=== PATIENT | female | born 1965 | race African-American/Black ===

== ENCOUNTER 2018-04-18 11:01 | Inpatient (IN) | payer OTHER ==
[2018-04-18 11:25] VITALS: BMI 25.2
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
[2018-04-18] MEDS ORDERED: MENTHOL/PHENOL 1 EACH UD MM PRN (11:58)
[2018-04-18] MEDS ORDERED: LOPERAMIDE HCL 2 MG CAPSULE PO PRN (11:58)
[2018-04-18] MEDS ORDERED: chlordiazePOXIDE HCL 25 MG CAPSULE PO PRN (11:58)
[2018-04-18] MEDS ORDERED: P-EPHED 60MG/TRIPROLIDI 2.5MG TABLET PO PRN (11:58)
[2018-04-18] MEDS ORDERED: MAG HYDROX/AL HYDROX/SIMETH 30 ML UNIT-DOSE CUP PO PRN (11:58)
[2018-04-18] MEDS ORDERED: MAGNESIUM CITRATE 300 ML BOTTLE PO PRN (11:58)
[2018-04-18] MEDS ORDERED: IBUPROFEN 400 MG TABLET (FP) PO PRN (11:58)
[2018-04-18] MEDS ORDERED: ACETAMINOPHEN 325 MG TABLET (FP) PO PRN (11:58)
[2018-04-18] MEDS ORDERED: MAGNESIUM HYDROX 2400MG/30ML ORAL SUSPENSION 30 ML CUP PO PRN (11:58)
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
[2018-04-18] MEDS: chlordiazePOXIDE HCL 25 MG CAPSULE PO SCH ×2 (17:16→22:38)
[2018-04-18] MEDS ORDERED: THIAMINE HCL 100 MG TABLET (FP) PO SCH (22:00)
[2018-04-18] MEDS ORDERED: MELATONIN 5 MG TABLETS PO PRN (22:00)
[2018-04-19] MEDS: guaiFENesin/D-METHORPHAN HB 10 ML UNIT-DOSE CUPS PO PRN ×2 (02:14→10:40)
[2018-04-19] MEDS: chlordiazePOXIDE HCL 25 MG CAPSULE PO SCH ×2 (05:32→10:41)
[2018-04-19] MEDS ORDERED: LEVOTHYROXINE NA 100 MCG TABLET (FP) PO SCH (07:00)
[2018-04-19] MEDS ORDERED: PRENATAL VITAMINS W/ FOLIC ACID TABLET (FP) PO SCH (10:00)
[2018-04-19 10:09] LABS: URINE APPEARANCE CLEAR; URINE BILIRUBIN NEGATIVE (<2.0 mg/dL); URINE COLOR YELLOW; URINE GLUCOSE (UA) NEGATIVE (NEGATIVE); URINE KETONE NEGATIVE (NEGATIVE); URINE LEUK ESTERASE TRACE (NEGATIVE); URINE NITRITE NEGATIVE (NEGATIVE); URINE PROTEIN NEGATIVE (NEGATIVE); URINE UROBILINOGEN NEGATIVE mg/dL (0.2-1.0)
[2018-04-19 10:19] LABS: EPI CELLS RARE /HPF (FEW); URINE MUCUS RARE
[2018-04-19 10:28] LABS: HEMATOCRIT 39.8 % (32.4-45.2); HEMOGLOBIN 13.8 GM/dL (10.7-15.3); MCH 33.8 pg (25.7-33.7); MCHC 34.6 g/dl (32.0-36.0); MEAN CELL VOLUME 97.6 fl (80-96); MEAN PLT VOLUME 8.4 fl (7.5-11.1); PLATELET COUNT 396 K/MM3 (134-434); RBC 4.07 M/mm3 (3.60-5.2); RDW 13.2 % (11.6-15.6); WHITE BLOOD COUNT 5.4 K/mm3 (4.0-10.0)
[2018-04-19 10:33] LABS: ALBUMIN 3.3 g/dl (3.4-5.0); ALK PHOS 120 U/L (45-117); ANION GAP 12 MMOL/L (8-16); BILIRUBIN,TOTAL 0.3 mg/dL (0.2-1); BLOOD UREA NITROGEN 11 mg/dL (7-18); CALCIUM 8.4 mg/dL (8.5-10.1); CHLORIDE 108 mmol/L (98-107); CO2 25 mmol/L (21-32); GLUCOSE,RANDOM 118 mg/dL (74-106); POTASSIUM 4.4 mmol/L (3.5-5.1); SGOT/AST 16 U/L (15-37); SGPT/ALT 21 U/L (13-61); SODIUM 144 mmol/L (136-145); TOT PROT 7.1 g/dl (6.4-8.2)
--- NOTE | 2018-04-19 12:26 | EKG ---
Test Reason : Blood Pressure : / mmHG Vent. Rate : 059 BPM Atrial Rate : 059 BPM P-R Int : 132 ms QRS Dur : 082 ms QT Int : 448 ms P-R-T Axes : 064 064 058 degrees QTc Int : 443 ms SINUS BRADYCARDIA WITH MARKED SINUS ARRHYTHMIA NO PREVIOUS ECGS AVAILABLE Confirmed by CLARENCE CHAVEZ MD ([id number]) on 04/19/2018 12:26:27 PM Referred By: Confirmed By:CLARENCE CHAVEZ MD
--- NOTE | 2018-04-19 13:17 | PN ---
S CIWA - CIWA Score Nausea/Vomitin-No Nausea/No Vomiting Muscle Tremors: None Anxiety: 3 Agitation: 3 Paroxysmal Sweats: 2 Orientation: 0-Oriented Tacttile Disturbances: 0-None Auditory Disturbances: 0-None Visual Disturbances: 0-None Headache: 0-None Present CIWA-Ar Total Score: 8 BHS Progress Note (SOAP) Subjective: PATIENT C/O ANXIETY, IRRITABILITY AND SWEATING. Objective: 04/19/18 13:13 Vital Signs Temperature 98.1 F 04/19/18 09:45 Pulse Rate 81 04/19/18 09:45 Respiratory Rate 18 04/19/18 09:45 Blood Pressure 117/74 04/19/18 09:45 O2 Sat by Pulse Oximetry (%) Vital Signs Temperature 98.1 F 04/19/18 09:45 Pulse Rate 81 04/19/18 09:45 Respiratory Rate 18 04/19/18 09:45 Blood Pressure 117/74 04/19/18 09:45 O2 Sat by Pulse Oximetry (%) Laboratory Tests 04/19/18 04/19/18 04/19/18 06:00 06:00 06:00 WBC 5.4 RBC 4.07 Hgb 13.8 Hct 39.8 MCV 97.6 H MCH 33.8 H MCHC 34.6 RDW 13.2 Plt Count 396 MPV 8.4 Sodium 144 Potassium 4.4 Chloride 108 H Carbon Dioxide 25 Anion Gap 12 BUN 11 Creatinine 1.0 Creat Clearance w eGFR 58.00 Random Glucose 118 H Calcium 8.4 L Total Bilirubin 0.3 AST 16 ALT 21 Alkaline Phosphatase 120 H Total Protein 7.1 Albumin 3.3 L Urine Color Urine Appearance Urine pH Ur Specific Harrison Urine Protein Urine Glucose (UA) Urine Ketones Urine Blood Urine Nitrite Urine Bilirubin Urine Urobilinogen Ur Leukocyte Esterase Urine WBC (Auto) Urine RBC (Auto) Ur Epithelial Cells Urine Mucus RPR Titer Nonreactive 04/19/18 08:20 WBC RBC Hgb Hct MCV MCH MCHC RDW Plt Count MPV Sodium Potassium Chloride Carbon Dioxide Anion Gap BUN Creatinine Creat Clearance w eGFR Random Glucose Calcium Total Bilirubin AST ALT Alkaline Phosphatase Total Protein Albumin Urine Color Yellow Urine Appearance Clear Urine pH 6.0 Ur Specific Harrison 1.025 Urine Protein Negative Urine Glucose (UA) Negative Urine Ketones Negative Urine Blood Negative Urine Nitrite Negative Urine Bilirubin Negative Urine Urobilinogen Negative Ur Leukocyte Esterase Trace Urine WBC (Auto) 10 Urine RBC (Auto) 1 Ur Epithelial Cells Rare Urine Mucus Rare RPR Titer PE: ALERT AND ORIENTED X 3 AMB AD MANUEL SKIN WARM, +FACIAL MOISTURE EXT FULL ROM IRRITABLE, PATIENT DID NOT WANT TO SPEAK TO PROVIDER Assessment: 04/19/18 13:16 WITHDRAWAL SX Plan: CONTINUE DETOX ORDERED ENCOURAGE ORAL FLUIDS CONTINUE TO MONITOR
[2018-04-19] MEDS ORDERED: chlordiazePOXIDE HCL 25 MG CAPSULE PO SCH (17:00)
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
[2018-04-19 18:00] VITALS: BP 119/82; PULSE 84; TEMP 96.9
--- NOTE | 2018-04-19 21:20 | PN ---
[facility] Progress Note Note: RECEIVED CALL FROM DR. AHN FROM [facility] ER. INFORMED THAT CLIENT HAS BEEN CLEARED TO RETURN BUT CLIENT HAS INFORMED THEM THAT SHE DOES NOT WANT TO RETURN FOR CONTINUATION OF TXMENT. P- DC
--- NOTE | 2018-04-19 21:21 | DS ---
[facility] Detox Discharge Summary Admission Date: 04/18/18 Discharge Date: 04/19/18 - History Present History: Alcohol Dependence, Cocaine Dependence Pertinent Past History: NICOTINE DEP OA HYPOTHYROIDISM BIPOLAR INSOMNIA DM-2 - Physical Exam Results Vital Signs: Vital Signs Temperature 96.9 F L 04/19/18 17:57 Pulse Rate 84 04/19/18 17:57 Respiratory Rate 18 04/19/18 17:57 Blood Pressure 119/82 04/19/18 17:57 O2 Sat by Pulse Oximetry (%) - Treatment Hospital Course: Discharged Condition Good Patient has Accepted a Rehab Referral to: CLIENT TRANSFERRED TO [facility]. CLIENT DECLINED TO RETURN AFTER - Medication Discharge Medications: Ambulatory Orders Levothyroxine [Synthroid -] 100 mcg PO DAILY 04/18/18 Quetiapine Fumarate [Seroquel -] 200 mg PO HS 04/18/18 - Diagnosis (1) Alcohol dependence with uncomplicated withdrawal Status: Acute (2) Arthritis of both knees Status: Chronic (3) Bipolar disorder Status: Chronic (4) DM2 (diabetes mellitus, type 2) Status: Chronic (5) Hypothyroidism Status: Chronic (6) Insomnia Status: Chronic (7) Use of cane as ambulatory aid Status: Chronic (8) Cocaine dependence Status: Chronic (9) Nicotine dependence Status: Chronic - AMA Did Patient Leave Against Medical Advice: No (TRANSFERRED TO [facility]. CLIENT CLEARED BUT DECLINED TO RETURN )
[2018-04-20] MEDS ORDERED: chlordiazePOXIDE 5 MG CAPSULE PO SCH (17:00)
[2018-04-21] MEDS ORDERED: chlordiazePOXIDE HCL 10 MG CAPSULE PO SCH (17:00)
== END 2018-04-19 21:20 | disposition short-term general hospital (02) | DRG 897 ==
LOC: YASAS 11:01 → Y6N 12:35
PROC: HZ2ZZZZ Detoxification Services for Substance Abuse Treatment (ICD-10-PCS; principal; 2018-04-18)
DX: F10.230 Alcohol dependence with withdrawal, uncomplicated (principal); F14.20 Cocaine dependence, uncomplicated; F17.210 Nicotine dependence, cigarettes, uncomplicated; F31.9 Bipolar disorder, unspecified; F25.9 Schizoaffective disorder, unspecified; F19.24 Other psychoactive substance dependence with psychoactive substance-induced mood disorder; F39 Unspecified mood [affective] disorder; G47.00 Insomnia, unspecified; E03.9 Hypothyroidism, unspecified; E11.9 Type 2 diabetes mellitus without complications; M17.0 Bilateral primary osteoarthritis of knee; R26.89 Other abnormalities of gait and mobility; Z99.89 Dependence on other enabling machines and devices; Z98.51 Tubal ligation status; Z91.5 Personal history of self-harm; Z88.0 Allergy status to penicillin
CPT/HCPCS: 36415; 80053; 81003; 81015; 82962; 85027; 86593; 93005; 93010